=== PATIENT | male | born 1950 | race Caucasian/White ===

== ENCOUNTER 2016-08-26 20:17 | Inpatient (IN) | payer MEDICARE ==
[~2016-08-26] VITALS: Ht 182.9 cm; Wt 116.5 kg
[2016-08-26] MEDS ORDERED: SODIUM CHLORIDE 0.9% 1,000 ML ONE (20:49)
[2016-08-26] MEDS ORDERED: ASPIRIN 81 MG CHEW TAB ONE (23:38)
[2016-08-26] MEDS ORDERED: MORPHINE 2 MG/ML SYR IV PRN (23:50)
[2016-08-27] MEDS: KCL IV SCH ×3 (02:44→23:36)
[2016-08-27] MEDS: SOD CHLOR IV SCH ×3 (02:44→23:36)
[2016-08-27] MEDS ORDERED: *PINK BRACELET XX ONE (02:55)
[2016-08-27 03:23] VITALS: BP_SYST 141; BP_SYST 143; RESP 20; TEMP 97.9
[2016-08-27 03:25] VITALS: Ht 182.9 cm; Wt 116.5 kg
[2016-08-27 07:47] VITALS: BP_SYST 139; RESP 20; TEMP 97.9
[2016-08-27] MEDS: *HOME MEDS KEPT IN PHARMACY XX SCH ×2 (08:00→20:00)
[2016-08-27] MEDS: ASPIRIN 81 MG CHEW TAB PO SCH (10:12)
[2016-08-27] MEDS ORDERED: HYDROCHLOROTHIAZIDE PO SCH (10:15)
[2016-08-27] MEDS ORDERED: LOSARTAN PO SCH (10:15)
[2016-08-27] MEDS ORDERED: [UNRECOGNIZED DRUG - OTHER] PO SCH (10:15)
[2016-08-27] MEDS ORDERED: DEXTROSE 50% SYRINGE 50 ML IV PRN (10:30)
[2016-08-27] MEDS ORDERED: GLUCAGON 1 MG VIAL IM PRN (10:30)
[2016-08-27] MEDS: amLODIPine 10 MG TAB PO SCH (11:21)
[2016-08-27] MEDS: CLOPIDOGREL 75 MG TAB PO SCH (11:21)
[2016-08-27] MEDS: Losartan 50 MG TAB PO SCH (11:21)
[2016-08-27] MEDS: TAMSULOSIN 0.4 MG CAP PO SCH (11:21)
[2016-08-27] MEDS: HCTZ 12.5 MG CAP PO SCH (11:22)
[2016-08-27] MEDS: CEFTRIAXONE 1 GM in SODIUM CHLORIDE 0.9% 50 ML IV SCH (11:36)
[2016-08-27 11:39] VITALS: BP_SYST 142; RESP 20; TEMP 96.8
[2016-08-27 14:59] VITALS: BP_SYST 131; RESP 20; TEMP 98.7
[2016-08-27 20:12] VITALS: BP_SYST 146; RESP 20; TEMP 98.2
[2016-08-27] MEDS: LEVEMIR INSULIN SUBQ SCH (20:55)
[2016-08-27] MEDS: Atorvastatin 20 MG TAB PO SCH (20:55)
[2016-08-27 23:47] VITALS: BP_SYST 159; RESP 20; TEMP 97.9
[2016-08-28 03:53] VITALS: BP_SYST 148; RESP 20; TEMP 97.6
[2016-08-28 07:45] VITALS: BP_SYST 158; RESP 20; TEMP 98
[2016-08-28] MEDS: *HOME MEDS KEPT IN PHARMACY XX SCH ×2 (08:00→20:00)
[2016-08-28] MEDS ORDERED: MISSING DOSE XX ONE (08:10)
[2016-08-28] MEDS: CEFTRIAXONE 1 GM in SODIUM CHLORIDE 0.9% 50 ML IV SCH (09:04)
[2016-08-28] MEDS: CLOPIDOGREL 75 MG TAB PO SCH (09:05)
[2016-08-28] MEDS: TAMSULOSIN 0.4 MG CAP PO SCH (09:05)
[2016-08-28] MEDS: ASPIRIN 81 MG CHEW TAB PO SCH (09:06)
[2016-08-28] MEDS: Losartan 50 MG TAB PO SCH (09:06)
[2016-08-28] MEDS: HCTZ 12.5 MG CAP PO SCH (09:06)
[2016-08-28] MEDS: amLODIPine 10 MG TAB PO SCH (09:06)
[2016-08-28] MEDS: KCL IV SCH ×2 (10:22→20:44)
[2016-08-28] MEDS: SOD CHLOR IV SCH ×2 (10:22→20:44)
[2016-08-28 11:43] VITALS: BP_SYST 157; RESP 20; TEMP 98
[2016-08-28] MEDS: ACETAMINOPHEN 325 MG TAB PO PRN (14:43)
[2016-08-28 15:47] VITALS: BP_SYST 152; RESP 20; TEMP 98.3
[2016-08-28 19:00] VITALS: BP_SYST 185; RESP 18; TEMP 98.3
[2016-08-28] MEDS: Atorvastatin 20 MG TAB PO SCH (20:03)
[2016-08-28] MEDS: LEVEMIR INSULIN SUBQ SCH (20:04)
[2016-08-28 23:00] VITALS: BP_SYST 180; BP_SYST 198; RESP 18; TEMP 98.1
[2016-08-29 03:00] VITALS: BP_SYST 167; RESP 18; TEMP 97.8
[2016-08-29] MEDS: KCL IV SCH (06:31)
[2016-08-29] MEDS: SOD CHLOR IV SCH (06:31)
[2016-08-29 07:47] VITALS: BP_SYST 194; BP_SYST 197; RESP 18; TEMP 97.9
[2016-08-29] MEDS: *HOME MEDS KEPT IN PHARMACY XX SCH ×2 (07:51→20:00)
[2016-08-29] MEDS: CEFTRIAXONE 1 GM in SODIUM CHLORIDE 0.9% 50 ML IV SCH (08:19)
[2016-08-29 12:07] VITALS: BP_SYST 169; RESP 18; TEMP 97.5
[2016-08-29] MEDS: CLOPIDOGREL 75 MG TAB PO SCH (13:13)
[2016-08-29] MEDS: Losartan 50 MG TAB PO SCH (13:13)
[2016-08-29] MEDS: HCTZ 12.5 MG CAP PO SCH (13:13)
[2016-08-29] MEDS: amLODIPine 10 MG TAB PO SCH (13:13)
[2016-08-29] MEDS: ASPIRIN 81 MG CHEW TAB PO SCH (13:14)
[2016-08-29] MEDS: TAMSULOSIN 0.4 MG CAP PO SCH (13:14)
[2016-08-29 15:24] VITALS: BP_SYST 154; RESP 18; TEMP 97.9
[2016-08-29] MEDS ORDERED: PHARMACY TO DOSE SUBQ SCH (17:45)
[2016-08-29 20:01] VITALS: BP_SYST 155; RESP 18; TEMP 98.4
[2016-08-29] MEDS: Atorvastatin 20 MG TAB PO SCH (20:34)
[2016-08-29] MEDS: LEVEMIR INSULIN SUBQ SCH (20:35)
[2016-08-29 23:27] VITALS: BP_SYST 160; RESP 18; TEMP 97.9
[2016-08-30 03:38] VITALS: BP_SYST 170; RESP 18; TEMP 97.6
[2016-08-30 07:42] VITALS: BP_SYST 172; RESP 18; TEMP 97.5
[2016-08-30] MEDS: *HOME MEDS KEPT IN PHARMACY XX SCH ×2 (08:00→20:00)
[2016-08-30] MEDS: Losartan 50 MG TAB PO SCH (09:04)
[2016-08-30] MEDS: HCTZ 12.5 MG CAP PO SCH (09:04)
[2016-08-30] MEDS: CEFTRIAXONE 1 GM in SODIUM CHLORIDE 0.9% 50 ML IV SCH (09:04)
[2016-08-30] MEDS: ASPIRIN 81 MG CHEW TAB PO SCH (09:05)
[2016-08-30] MEDS: amLODIPine 10 MG TAB PO SCH (09:05)
[2016-08-30] MEDS: TAMSULOSIN 0.4 MG CAP PO SCH (09:05)
[2016-08-30] MEDS ORDERED: MISSING DOSE XX ONE ×2 (09:15→20:20)
[2016-08-30] MEDS: hePARIN 20,000 UNITS in DEXTROSE 5% 500 ML IV SCH ×2 (09:30→20:43)
[2016-08-30 11:49] VITALS: BP_SYST 168; RESP 18; TEMP 97.8
[2016-08-30] MEDS: ACETAMINOPHEN 325 MG TAB PO PRN (14:38)
[2016-08-30] MEDS ORDERED: MIDAZOLAM 2 MG/2 ML INJ ONE (16:26)
[2016-08-30] MEDS ORDERED: MEPERIDINE 25 MG/ML ONE (16:26)
[2016-08-30 17:42] VITALS: BP_SYST 166; RESP 18; TEMP 97.3
[2016-08-30 19:59] VITALS: BP_SYST 160; RESP 16; TEMP 97.9
[2016-08-30] MEDS: Atorvastatin 20 MG TAB PO SCH (20:34)
[2016-08-30] MEDS: LEVEMIR INSULIN SUBQ SCH (20:42)
[2016-08-30 23:20] VITALS: BP_SYST 160; RESP 16; TEMP 98
[2016-08-31 03:13] VITALS: BP_SYST 160; RESP 16; TEMP 98.2
[2016-08-31] MEDS ORDERED: SALINE FLUSH 10 ML FLUSH PRN (05:15)
[2016-08-31] MEDS: SODIUM CHLORIDE 0.9% FLUSH BAG 500 ML IV SCH (05:19)
[2016-08-31] MEDS ORDERED: MISSING DOSE XX ONE ×3 (05:25→17:30)
[2016-08-31] MEDS: hePARIN 20,000 UNITS in DEXTROSE 5% 500 ML IV SCH ×2 (06:15→17:51)
[2016-08-31 07:34] VITALS: BP_SYST 152; RESP 16; TEMP 98.2
[2016-08-31] MEDS: *HOME MEDS KEPT IN PHARMACY XX SCH ×2 (08:00→20:00)
[2016-08-31] MEDS: CEFTRIAXONE 1 GM in SODIUM CHLORIDE 0.9% 50 ML IV SCH (08:26)
[2016-08-31] MEDS: Losartan 50 MG TAB PO SCH ×2 (08:27→20:35)
[2016-08-31] MEDS: SALINE FLUSH 10 ML FLUSH SCH ×2 (08:27→20:35)
[2016-08-31] MEDS: ASPIRIN 81 MG CHEW TAB PO SCH (08:28)
[2016-08-31] MEDS: TAMSULOSIN 0.4 MG CAP PO SCH (08:28)
[2016-08-31] MEDS: amLODIPine 10 MG TAB PO SCH (08:28)
[2016-08-31 11:56] VITALS: BP_SYST 184; RESP 20; TEMP 97.7
[2016-08-31] MEDS: TRIAMTER/HCTZ 37.5/25MG TAB PO SCH (14:55)
[2016-08-31 15:09] VITALS: BP_SYST 158; RESP 18; TEMP 97.7
[2016-08-31] MEDS: cloNIDine 0.1 MG TAB PO SCH (20:34)
[2016-08-31] MEDS: Atorvastatin 20 MG TAB PO SCH (20:35)
[2016-08-31 20:36] VITALS: BP_SYST 171; RESP 18; TEMP 97.2
[2016-08-31] MEDS: LEVEMIR INSULIN SUBQ SCH (20:36)
[2016-09-01] VITALS (8 sets, daily range): BP systolic 114–175; RESP 16–20; TEMP 97–98.2
[2016-09-01] MEDS ORDERED: MISSING DOSE XX ONE ×4 (03:20→23:40)
[2016-09-01] MEDS: hePARIN 20,000 UNITS in DEXTROSE 5% 500 ML IV SCH ×2 (03:49→14:56)
[2016-09-01] MEDS: SODIUM CHLORIDE 0.9% FLUSH BAG 500 ML IV SCH (05:45)
[2016-09-01] MEDS: *HOME MEDS KEPT IN PHARMACY XX SCH ×2 (08:00→20:00)
[2016-09-01] MEDS: SALINE FLUSH 10 ML FLUSH SCH ×2 (08:00→20:00)
[2016-09-01] MEDS: amLODIPine 10 MG TAB PO SCH (08:42)
[2016-09-01] MEDS: CEFTRIAXONE 1 GM in SODIUM CHLORIDE 0.9% 50 ML IV SCH (08:42)
[2016-09-01] MEDS: cloNIDine 0.1 MG TAB PO SCH (08:43)
[2016-09-01] MEDS: TAMSULOSIN 0.4 MG CAP PO SCH (08:43)
[2016-09-01] MEDS: Losartan 50 MG TAB PO SCH ×2 (08:43→20:46)
[2016-09-01] MEDS: TRIAMTER/HCTZ 37.5/25MG TAB PO SCH (08:43)
[2016-09-01] MEDS: ASPIRIN 81 MG CHEW TAB PO SCH ×2 (09:00→12:49)
[2016-09-01] MEDS: Atorvastatin 20 MG TAB PO SCH (20:47)
[2016-09-01] MEDS: LEVEMIR INSULIN SUBQ SCH (20:48)
[2016-09-01] MEDS ORDERED: cloNIDine 0.1 MG TAB PO SCH (21:00)
[2016-09-02] VITALS (7 sets, daily range): BP systolic 121–168; RESP 16–96; TEMP 97.2–98.3
[2016-09-02] MEDS: hePARIN 20,000 UNITS in DEXTROSE 5% 500 ML IV SCH (00:17)
[2016-09-02] MEDS: SODIUM CHLORIDE 0.9% FLUSH BAG 500 ML IV SCH (05:21)
[2016-09-02] MEDS: SALINE FLUSH 10 ML FLUSH SCH ×2 (08:00→20:00)
[2016-09-02] MEDS: *HOME MEDS KEPT IN PHARMACY XX SCH ×2 (08:00→19:35)
[2016-09-02] MEDS ORDERED: cloNIDine 0.2 MG TAB PO SCH ×2 (09:00→21:00)
[2016-09-02] MEDS ORDERED: MISSING DOSE XX ONE ×3 (09:20→12:20)
[2016-09-02] MEDS: amLODIPine 10 MG TAB PO SCH (09:24)
[2016-09-02] MEDS: CEFTRIAXONE 1 GM in SODIUM CHLORIDE 0.9% 50 ML IV SCH (09:24)
[2016-09-02] MEDS: TAMSULOSIN 0.4 MG CAP PO SCH (09:25)
[2016-09-02] MEDS: ASPIRIN 81 MG CHEW TAB PO SCH (09:25)
[2016-09-02] MEDS: Losartan 50 MG TAB PO SCH ×2 (10:04→21:15)
[2016-09-02] MEDS: TRIAMTER/HCTZ 37.5/25MG TAB PO SCH (10:05)
[2016-09-02] MEDS ORDERED: ONDANSETRON 4 MG VIAL IV PUSH PRN (12:10)
[2016-09-02] MEDS: Atorvastatin 20 MG TAB PO SCH (21:15)
[2016-09-02] MEDS: LEVEMIR INSULIN SUBQ SCH (21:16)
[2016-09-02] MEDS: LEVETIRACETAM 500 MG TAB PO SCH (23:08)
[2016-09-03 03:34] VITALS: BP_SYST 128; RESP 18; TEMP 97.6
[2016-09-03] MEDS: SODIUM CHLORIDE 0.9% FLUSH BAG 500 ML IV SCH ×2 (06:06→12:59)
[2016-09-03 07:55] VITALS: BP_SYST 119; RESP 18; TEMP 97.9
[2016-09-03] MEDS: *HOME MEDS KEPT IN PHARMACY XX SCH ×2 (08:00→19:28)
[2016-09-03] MEDS: TRIAMTER/HCTZ 37.5/25MG TAB PO SCH (08:25)
[2016-09-03] MEDS: TAMSULOSIN 0.4 MG CAP PO SCH (08:25)
[2016-09-03] MEDS: LEVETIRACETAM 500 MG TAB PO SCH (08:25)
[2016-09-03] MEDS: CEFTRIAXONE 1 GM in SODIUM CHLORIDE 0.9% 50 ML IV SCH (08:26)
[2016-09-03] MEDS: SALINE FLUSH 10 ML FLUSH SCH ×2 (08:26→20:39)
[2016-09-03] MEDS: amLODIPine 10 MG TAB PO SCH (09:00)
[2016-09-03] MEDS ORDERED: cloNIDine 0.2 MG TAB PO SCH (09:00)
[2016-09-03] MEDS: Losartan 50 MG TAB PO SCH (09:00)
[2016-09-03 12:06] VITALS: BP_SYST 122; RESP 18; TEMP 97.3
[2016-09-03] MEDS: ASPIRIN 81 MG CHEW TAB PO SCH (12:39)
[2016-09-03] MEDS ORDERED: THEOPHYLLINE ER 300 MG TAB PO ONE (12:55)
[2016-09-03] MEDS ORDERED: SODIUM CHLORIDE 0.9% 500 ML IV ONE (12:55)
[2016-09-03 16:22] VITALS: BP_SYST 120; RESP 18; TEMP 97.5
[2016-09-03 19:56] VITALS: BP_SYST 135; RESP 18; TEMP 97.5
[2016-09-03] MEDS: Atorvastatin 20 MG TAB PO SCH (20:39)
[2016-09-03] MEDS: LEVEMIR INSULIN SUBQ SCH (20:40)
[2016-09-03 23:00] VITALS: BP_SYST 140; RESP 18; TEMP 98.8
[2016-09-04 03:00] VITALS: BP_SYST 141; RESP 18; TEMP 97.4
[2016-09-04] MEDS: SODIUM CHLORIDE 0.9% FLUSH BAG 500 ML IV SCH (06:00)
[2016-09-04 07:50] VITALS: BP_SYST 130; RESP 18; TEMP 98.1
[2016-09-04] MEDS: ASPIRIN 81 MG CHEW TAB PO SCH (07:58)
[2016-09-04] MEDS: SALINE FLUSH 10 ML FLUSH SCH ×2 (07:58→21:14)
[2016-09-04] MEDS: *HOME MEDS KEPT IN PHARMACY XX SCH ×2 (07:59→19:17)
[2016-09-04] MEDS: TAMSULOSIN 0.4 MG CAP PO SCH (07:59)
[2016-09-04 11:41] VITALS: BP_SYST 128; RESP 18; TEMP 97.9
[2016-09-04 16:20] VITALS: BP_SYST 140; RESP 18; TEMP 97.9
[2016-09-04 20:00] VITALS: BP_SYST 161; RESP 18; TEMP 97.6
[2016-09-04] MEDS: Atorvastatin 20 MG TAB PO SCH (21:14)
[2016-09-04] MEDS: LEVEMIR INSULIN SUBQ SCH (21:15)
[2016-09-05 00:28] VITALS: BP_SYST 160; RESP 18; TEMP 98.2
[2016-09-05 04:16] VITALS: BP_SYST 168; RESP 18; TEMP 98
[2016-09-05] MEDS: SODIUM CHLORIDE 0.9% FLUSH BAG 500 ML IV SCH (05:13)
[2016-09-05 07:20] VITALS: RESP 18
[2016-09-05 07:26] VITALS: BP_SYST 172; RESP 20; TEMP 97.9
[2016-09-05] MEDS: *HOME MEDS KEPT IN PHARMACY XX SCH ×2 (08:00→10:57)
[2016-09-05] MEDS: ASPIRIN 81 MG CHEW TAB PO SCH (08:37)
[2016-09-05] MEDS: TAMSULOSIN 0.4 MG CAP PO SCH (08:37)
[2016-09-05] MEDS: SALINE FLUSH 10 ML FLUSH SCH (08:37)
[2016-09-05 10:32] VITALS: BP_SYST 168; RESP 18; TEMP 98
== END 2016-09-05 11:29 | DRG 65 ==
LOC: ENRESERVDT → ENRESERVTM → ENRESERV → ER 20:17 → ENPENDDIS 23:32 → EMR 23:32 → DELPENDDIS 23:32 → PCU 08-27 01:39
PROVIDERS: ADMIT Internal Medicine; ATTEND Internal Medicine
CPT/HCPCS: 36600; 70450; 70551; 71010; 80048; 80053; 82553; 82803; 82947; 84484; 85025; 85610; 85730; 93005; 93312; 96360